=== PATIENT | male | born 1970 | race Two or more races ===

== ENCOUNTER 2019-04-20 13:30 | Emergency (ER) | payer BC ==
[2019-04-20] MEDS ORDERED: Sodium Chloride 0.9% 1,000 ML IV ONE (14:00)
[2019-04-20] MEDS ORDERED: Ondansetron 4 MG/2 ML SDV IVPUSH ONE (14:00)
--- NOTE | 2019-04-20 14:41 | EDM.PDOC ---
ED HPI GENERAL MEDICAL PROBLEM - General Chief Complaint: Respiratory Problem Stated Complaint: VOMITING Time Seen by Provider: 04/20/19 13:35 - History of Present Illness INITIAL COMMENTS - FREE TEXT/NARRATIVE: HISTORY AND PHYSICAL: History of present illness: Patient 48-year-old male with history of asthma who presents with a concern of cough and requesting work release patient states she's also had posttussive emesis. There's been no fever chills or other complaints patient is not currently on any asthma medications since this has been intermittent and somewhat seasonal Review of systems: As per history of present illness and below otherwise all systems reviewed and negative. Past medical history: As per history of present illness and as reviewed below otherwise noncontributory. Surgical history: As per history of present illness and as reviewed below otherwise noncontributory. Social history: No reported history of drug or alcohol abuse. Family history: As per history of present illness and as reviewed below otherwise noncontributory. Physical exam: HEENT: Atraumatic, normocephalic, pupils reactive, negative for conjunctival pallor or scleral icterus, mucous membranes moist, throat clear, neck supple, nontender, trachea midline. Lungs: Clear to auscultation, breath sounds equal bilaterally, chest nontender. Heart: S1S2, regular, negative for clicks, rubs, or JVD. Abdomen: Soft, nondistended, nontender. Negative for masses or hepatosplenomegaly. Negative for costovertebral tenderness. Pelvis: Stable nontender. Genitourinary: Deferred. Rectal: Deferred. Extremities: Atraumatic, negative for cords or calf pain. Neurovascular unremarkable. Neuro: Awake, alert, oriented. Cranial nerves II through XII unremarkable. Cerebellum unremarkable. Motor and sensory unremarkable throughout. Exam nonfocal. Diagnostics: Chest x-ray influenza screen Therapeutics: Zofran 4 mg Impression: #1 history of asthma #2 tracheobronchitis Definitive disposition and diagnosis as appropriate pending reevaluation and review of above. - Related Data Allergies Allergy/AdvReac Type Severity Reaction Status Date / Time No Known Allergies Allergy Verified 04/20/19 14:22 Home Meds: Home Meds . [No Known Home Meds] 04/20/19 [History] Past Medical History - Infectious Disease History Infectious Disease History: Reports: None Social & Family History - Family History Family Medical History: Noncontributory - Tobacco Use Smoking Status *Q: Never Smoker Second Hand Smoke Exposure: No - Caffeine Use Caffeine Use: Reports: Coffee - Recreational Drug Use Recreational Drug Use: No ED ROS GENERAL - Review of Systems Review Of Systems: Comprehensive ROS is negative, except as noted in HPI. ED EXAM, GENERAL - Physical Exam Exam: See Below (dictation) Course - Vital Signs Last Recorded V/S: Last Vital Signs Temp 36.0 C 04/20/19 14:23 Pulse 93 04/20/19 14:23 Resp 18 04/20/19 14:23 BP 132/82 04/20/19 14:23 Pulse Ox 94 L 04/20/19 14:23 - Orders/Labs/Meds Orders: Active Orders 24 hr Category Date Time Status Chest 2V [CR] Stat Exams 04/20/19 14:28 Ordered INFLUENZA A+B AG SCREEN [RM] Stat Lab 04/20/19 14:34 Ordered Meds: Medications Discontinued Medications Generic Name Dose Route Start Last Admin Trade Name Freq PRN Reason Stop Dose Admin Sodium Chloride 1,000 mls @ 999 mls/hr 04/20/19 14:00 Normal Saline IV 04/20/19 15:00 STAT ONE Ondansetron HCl 4 mg 04/20/19 14:00 Zofran IVPUSH 04/20/19 14:01 ONETIME ONE Departure - Departure Time of Disposition: 14:41 Disposition: Home, Self-Care 01 Condition: Good Clinical Impression: History of asthma, Tracheobronchitis - Discharge Information Additional Instructions: The following information is given to patients seen in the emergency department who are being discharged to home. This information is to outline your options for follow-up care. We provide all patients seen in our emergency department with a follow-up referral. The need for follow-up, as well as the timing and circumstances, are variable depending upon the specifics of your emergency department visit. If you don't have a primary care physician on staff, we will provide you with a referral. We always advise you to contact your personal physician following an emergency department visit to inform them of the circumstance of the visit and for follow-up with them and/or the need for any referrals to a consulting specialist. The emergency department will also refer you to a specialist when appropriate. This referral assures that you have the opportunity for followup care with a specialist. All of these measure are taken in an effort to provide you with optimal care, which includes your followup. Under all circumstances we always encourage you to contact your private physician who remains a resource for coordinating your care. When calling for followup care, please make the office aware that this follow-up is from your recent emergency room visit. If for any reason you are refused follow-up, please contact the [facility] emergency department at and asked to speak to the emergency department charge nurse. [facility] [address] [place] [id number] [address] Miguel Daley albuterol as prescribed follow-up clinic as discussed return as needed as discussed - My Orders Last 24 Hours: My Active Orders 04/20/19 14:34 INFLUENZA A+B AG SCREEN [RM] Stat - Assessment/Plan Last 24 Hours: My Active Orders 04/20/19 14:34 INFLUENZA A+B AG SCREEN [RM] Stat
--- NOTE | 2019-04-20 15:02 | CR ---
Indication: Cough. Dyspnea. Technique: PA and lateral views of the chest Comparison: None Findings: Mild elevation of the right hemidiaphragm is identified. Heart is normal in size. The lungs are clear. No infiltrate, pleural effusion, or pneumothorax is identified. Impression: No acute cardiopulmonary process. Dictated by Cynthia Fonseca MD @ Apr 20 2019 2:59PM Signed by Dr. Cynthia Fonseca @ Apr 20 2019 3:00PM
== END 2019-04-20 14:45 | disposition home or self-care (01) ==
LOC: MW.ED 13:30
DX: J40 Bronchitis, not specified as acute or chronic (principal)
CPT/HCPCS: 71046; 71046-26; 87804; 99284; 99284-25